=== PATIENT | female | born 1985 | race Caucasian/White ===

== ENCOUNTER → 2019-08-29 16:35 | Outpatient (BNVA) | payer SELFPAY | PROVIDERS: Family Provider Family Medicine; Visit Provider Nurse Practitioner Family | DX: J11.1 Influenza due to unidentified influenza virus with other respiratory manifestations (principal) | CPT/HCPCS: 87804 ==

== ENCOUNTER 2019-08-31 13:47 | Emergency (ER) | payer SELFPAY ==
[2019-08-31 13:56] VITALS: BP 160/94; PULSE 122; RESP 18; TEMP 37.8; O2SAT 95; BMI 38.7
--- NOTE | 2019-08-31 14:11 | ED_ITS ---
HPI - Fever General: Chief Complaint: Fever Stated Complaint: FLU-A POSS, CANT GET RID OF FEVER Time Seen by Provider: 08/31/19 14:11 Source: patient Mode of arrival: ambulatory Limitations: no limitations History of Present Illness: HPI Narrative: Patient is a 33-year-old female presents to ED today with complaints of body aches, fever, not wanting to eat since Thursday; patient was seen at urgent care on Thursday and diagnosed with influenza A; she has been alternating Tylenol and Motrin but does not feel like she can adequately control her fevers; she is also concerned about the diffuse body aches and possible dehydration; she complains of a nonproductive cough; reports she has 2 family members that she has had close proximity with that were influenza positive and also states several residents at the [employer] she works that have been positive for influenza MD elicited complaint: fever, malaise and weakness Onset (ago): day(s) Context: sick contacts Exacerbating factors: nothing Relieving factors: nothing Associated symptoms: Reports chills; Deny abdominal pain, chest pain, diarrhea, dysuria, headache(s), nasal congestion, nausea, sinus pain or vomiting Treatments prior to arrival fever: acetaminophen and ibuprofen Review of Systems Const: Reports: fever, chills, body aches, change in appetite, fatigue and malaise Eyes: Denies: change in vision, blurry vision, photophobia or eye discharge ENMT: Reports: throat pain; Denies: enlarged tonsils, painful swallowing, swelling of lips/tongue, oral sores/lesions, nasal discharge, nasal congestion, post nasal drip or facial/sinus pain Card: Denies: chest pain, palpitations, irregular heart rhythm, edema, lightheadedness, syncope, pre-syncope or shortness of breath when lying down Resp: Reports: non-productive cough and chest congestion; Denies: shortness of breath, productive cough, wheezing, stridor, pain on inspiration, change in phlegm color or coughing up blood GI: Denies: abdominal pain, nausea, vomiting or diarrhea : Denies: difficulty urinating, painful urination, urinary frequency, urinary urgency or urinary hesitancy Skin/Breast: Denies: rash Neuro: Denies: headache, numbness in extremities, weakness in extremities, changes in sensation or lack of coordination PFSH ED PFSH: Statuses (acute, chronic, etc) shown below reflect problem list status as previously entered and may not be historically accurate Social History (Updated 08/29/19 @ 16:38 by Marlin Graham LPN) Smoking and tobacco status: current every day smoker Alcohol intake: never Physical Exam Const: COMMON NORMALS: oriented x3, no limitations, alert and well nourished OTHER: looks like she doesn't feel well HENMT: COMMON NORMALS: normocephalic, head/scalp atraumatic and external nose normal HEAD & SCALP: normocephalic and atraumatic FACE & SINUS: normal facial exam and sinuses nontender NOSE: external nose normal THROAT: posterior oropharynx normal, tonsils normal and uvula midline Eye: COMMON NORMALS: PERRL and EOMs intact bilaterally PUPIL: Yes PERRL Neck/C-Spine: COMMON NORMALS: full ROM, no lymphadenopathy, supple and no meningeal signs Chest: COMMONS NORMALS: inspection of chest normal Resp: COMMON NORMALS: normal respiratory effort and clear to auscultation bilaterally AUSCULTATION: clear to auscultation bilaterally Cardio: COMMON NORMALS: regular rhythm RATE: tachycardic RHYTHM: regular rhythm GI: COMMON NORMALS: normal to inspection, nondistended, normoactive bowel sounds, soft to palpation, non-tender, no hepatosplenomegaly and no masses PALPATION: Yes soft and Yes no hepatosplenomegaly : COMMON NORMALS: Yes no CVA tenderness BLADDER/KIDNEY EXAM: Yes no CVA tenderness Back/Pelvis: COMMON NORMALS: no CVA tenderness and thoracic and lumbar spine normal to inspection Extremity: COMMON NORMALS: normal to inspection Neuro: COMMON NORMALS: oriented x3 SENSORIUM/ORIENTATION: Yes alert MENINGEAL SIGNS: Yes no meningeal signs Skin: COMMON NORMALS: no rashes or lesions noted GENERAL SKIN EXAM: no rashes or lesions noted Course Vital Signs: Vital signs: Vital Signs Temperature 98.4 F 08/31/19 15:40 Pulse Rate 93 08/31/19 15:40 Respiratory Rate 16 08/31/19 15:40 Blood Pressure 138/88 08/31/19 15:40 Pulse Oximetry 96 08/31/19 15:40 MDM - Fever MDM Narrative: Medical decision making narrative: Patient feels much better after a liter of fluids and fever subsiding; labs look okay but she does have a possible right lower lobe infiltrate; this is most likely viral however we cannot exclude the possibility of a secondary bacterial infection therefore patient will be covered with doxycycline; recommend follow-up with primary care provider in 3 to 5 days for continued symptoms; return to ED precautions given Lab Data: Labs: Lab Results 08/31/19 08/31/19 08/31/19 Range/Units 14:25 14:25 14:25 WBC 3.4 L (4.0-10.0) 10^3/ uL RBC 4.73 (4.1-5.3) 10^6/u L Hgb 13.5 (11.5-15.3) g/dL Hct 40.6 (37.0-47.0) % MCV 85.8 (81-99) fL MCH 28.5 (28.0-34.0) pg MCHC 33.3 (30.0-36.0) g/dL RDW 12.4 (12.1-15.1) % Plt Count 178 (130-400) 10^3/c mm MPV 10.7 H (7.4-10.4) fL Neut % (Auto) 72.8 % Lymph % (Auto) 21.6 % Hall % (Auto) 5.0 % Eos % (Auto) 0.0 % Baso % (Auto) 0.3 % Neut # (Auto) 2.5 (1.8-7.7) 10^3/u L Lymph # (Auto) 0.7 L (0.8-4.8) 10^3/u L Hall # (Auto) 0.2 (0.2-0.9) 10^3/u L Eos # (Auto) 0.0 (0.0-0.8) 10^3/u L Baso # (Auto) 0.0 (0.0-0.1) 10^3/u L Nucleated RBC % (a uto) 0 % Nucleated RBCs # 0.0 /100WBC Sodium 136 (136-145) mmol/L Potassium 3.2 L (3.5-5.1) mmol/L Chloride 99 (98-107) mmol/L Carbon Dioxide 23 (22-29) mmol/L Anion Gap 17.2 (5-19) BUN 7 (6-20) mg/dL Creatinine 0.8 (0.5-0.9) mg/dL GFR Calculation 82.1 L (90-130) mL/min Glucose 184 H (74-109) mg/dL Calcium 9.4 (8.5-10.5) mg/dL Total Bilirubin 0.4 (0.15-1.2) mg/dL AST 40 H (0-32) U/L ALT 16 (0-33) U/L Alkaline Phosphata se 114 H (35-105) IU/L Total Protein 7.5 (6.6-8.7) g/dL Albumin 4.3 (3.5-5.2) g/dL Globulin 3.2 (1.3-4.6) g/dL HCG, Qual Negative (Negative) Imaging Data^: CXR: Radiologist's impression: [address] [address] XRay Report Signed Patient: Sydnie Walsh Unit #: [id number] : [id number] Age/Sex: 33 / F ADM Date: 08/31/19 Loc: ER Room/Bed: Attending Dr: Ordering Provider/Ordering MD: Malyl Rojas Date of Service: 08/31/19 Procedure(s): XR chest 1V portable [id number] Accession Number(s): [id number] Report Number: [id number] PROCEDURE INFORMATION: Exam: XR Chest, 1 View Exam date and time: 08/31/2019 2:51 PM Age: 33 years old Clinical indication: Chest pain; Additional info: Cough/congestion TECHNIQUE: Imaging protocol: XR of the chest Views: 1 view. COMPARISON: CR Chest 1 [place] [id number] 12/21/2017 2:01 PM FINDINGS: Lungs: Minimal right lower lung opacity. Minimal linear left lower lung opacity. Pleural space: Unremarkable. No pleural effusion. No pneumothorax. Heart/Mediastinum: Unremarkable. No cardiomegaly. Bones/joints: No acute findings. XR/XR chest 1V portable [id number] IMPRESSION: Minimal bilateral lower lung atelectasis or pneumonia, right more than left. Dictated By: Quinton Fields MD Signed By: Quinton Fields MD Signed Date/Time: 08/31/19 1524 DD/ 1523 Discharge Plan Discharge Patient Disposition: Home, Self-Care Clinical Impression: Influenza Pneumonia Qualifiers: Pneumonia type: due to unspecified organism Laterality: right Lung location: lower lobe of lung Qualified Code(s): J18.9 - Pneumonia, unspecified organism Condition: Stable Prescriptions: New doxycycline monohydrate 100 mg capsule 100 mg PO BID 7 Days Qty: 14 RF: 0 Discharge Orders: Discharge Order (Routine); Ordered 08/31/19 Ordered By: Mally Rojas Referrals: Kelsi Burch MD [Family Provider] - Discharge Diet: Usual diet Discharge Activity: Increase activity as tolerated Discharge Date/Time: 08/31/19 15:41 Coding Level of Care Code ED Catalog Specialist for Cristiano Alvarado
--- NOTE | 2019-08-31 14:16 | XRR_ITS ---
PROCEDURE INFORMATION: Exam: XR Chest, 1 View Exam date and time: 08/31/2019 2:51 PM Age: 33 years old Clinical indication: Chest pain; Additional info: Cough/congestion TECHNIQUE: Imaging protocol: XR of the chest Views: 1 view. COMPARISON: CR Chest 1 [place] [id number] 12/21/2017 2:01 PM FINDINGS: Lungs: Minimal right lower lung opacity. Minimal linear left lower lung opacity. Pleural space: Unremarkable. No pleural effusion. No pneumothorax. Heart/Mediastinum: Unremarkable. No cardiomegaly. Bones/joints: No acute findings. XR/XR chest 1V portable [id number] IMPRESSION: Minimal bilateral lower lung atelectasis or pneumonia, right more than left.
[2019-08-31 14:34] VITALS: BP 139/93; PULSE 103; RESP 18; TEMP 37.4; O2SAT 96
[2019-08-31 14:37] LABS: Basophils % 0.3 %; Hematocrit 40.6 % (37.0-47.0); Hemoglobin 13.5 g/dL (11.5-15.3); Lymphocytes # 0.7 10^3/uL (0.8-4.8); Lymphocytes % 21.6 %; Mean Corpuscular HGB Conc 33.3 g/dL (30.0-36.0); Mean Corpuscular Hemoglobin 28.5 pg (28.0-34.0); Mean Corpuscular Volume 85.8 fL (81-99); Mean Platelet Volume 10.7 fL (7.4-10.4); Monocytes # 0.2 10^3/uL (0.2-0.9); Neutrophils # 2.5 10^3/uL (1.8-7.7); Neutrophils % 72.8 %; Nucleated Red Blood Cells % 0 %; Platelet Count 178 10^3/cmm (130-400); Red Blood Count 4.73 10^6/uL (4.1-5.3); Red Cell Distribution Width 12.4 % (12.1-15.1); White Blood Count 3.4 10^3/uL (4.0-10.0)
[2019-08-31] MEDS: acetaminophen 500 mg Tablet 1000 MG PO (14:46)
[2019-08-31] MEDS: sodium chloride 0.9% 1,000 ML 999 ML IV (14:49)
[2019-08-31 15:02] LABS: Alanine Aminotransferase 16 U/L (0-33); Albumin Level 4.3 g/dL (3.5-5.2); Alkaline Phosphatase 114 IU/L (35-105); Anion Gap 17.2 (5-19); Aspartate Amino Transferase 40 U/L (0-32); Blood Urea Nitrogen 7 mg/dL (6-20); Calcium 9.4 mg/dL (8.5-10.5); Carbon Dioxide 23 mmol/L (22-29); Chloride 99 mmol/L (98-107); Globulin 3.2 g/dL (1.3-4.6); Glomerular Filtration Rate 82.1 mL/min (90-130); Glucose 184 mg/dL (74-109); Potassium 3.2 mmol/L (3.5-5.1); Sodium 136 mmol/L (136-145); Total Bilirubin 0.4 mg/dL (0.15-1.2); Total Protein 7.5 g/dL (6.6-8.7)
[2019-08-31 15:40] VITALS: BP 138/88; PULSE 93; RESP 16; TEMP 36.9; O2SAT 96
[2019-08-31 15:42] LABS: HCG, Serum Qual Negative (Negative)
== END 2019-08-31 15:41 | disposition home or self-care (01) ==
PROVIDERS: Emergency Provider Physician Assistant; Family Provider Family Medicine
DX: J11.00 Influenza due to unidentified influenza virus with unspecified type of pneumonia (principal); F17.210 Nicotine dependence, cigarettes, uncomplicated
CPT/HCPCS: 71045; 80053; 84703; 85025; 96360; 99282; 99283; J7030

== ENCOUNTER → 2021-11-07 15:52 | Outpatient (BNVA) | payer OTHER, SELFPAY | PROVIDERS: Family Provider Family Medicine; Visit Provider Family Medicine | DX: R05.9 Cough, unspecified (principal); R06.02 Shortness of breath; R09.89 Other specified symptoms and signs involving the circulatory and respiratory systems | CPT/HCPCS: 71046 ==

== ENCOUNTER → 2022-03-24 11:01 | Outpatient (BNVA) | payer OTHER, SELFPAY | PROVIDERS: Family Provider Family Medicine; Visit Provider Family Medicine | DX: L03.317 Cellulitis of buttock (principal); B37.2 Candidiasis of skin and nail; N80.9 Endometriosis, unspecified; Z76.89 Persons encountering health services in other specified circumstances; F41.1 Generalized anxiety disorder; F41.0 Panic disorder [episodic paroxysmal anxiety] | CPT/HCPCS: 85025 ==

== ENCOUNTER → 2022-03-26 00:08 | Outpatient (BNVA) | payer OTHER, SELFPAY | PROVIDERS: Family Provider Family Medicine; Visit Provider Family Medicine | DX: L03.317 Cellulitis of buttock (principal); B37.2 Candidiasis of skin and nail; N80.9 Endometriosis, unspecified; Z76.89 Persons encountering health services in other specified circumstances; F41.1 Generalized anxiety disorder; F41.0 Panic disorder [episodic paroxysmal anxiety] | CPT/HCPCS: 80053; 80061; 83036; 84439; 84443; 84481 ==

== ENCOUNTER → 2022-04-11 16:07 | Outpatient (BNVA) | payer OTHER, SELFPAY | PROVIDERS: Family Provider Family Medicine; Visit Provider Emergency Medicine | DX: Z20.822 Contact with and (suspected) exposure to COVID-19 (principal) | CPT/HCPCS: 87426 ==

== ENCOUNTER → 2022-10-14 08:00 | Outpatient (BNVA) | payer OTHER, SELFPAY | PROVIDERS: Family Provider Family Medicine; PCP Family Medicine; Referring Provider Family Medicine; Visit Provider Orthopaedic Surgery | DX: M25.512 Pain in left shoulder (principal) | CPT/HCPCS: 73030 ==

== ENCOUNTER 2023-06-10 11:30 | Outpatient (CLI) | payer OTHER, SELFPAY ==
[2023-06-10 12:09] LABS: Basophils # 0.1 10^3/uL (0.0-0.1); Basophils % 0.5 %; Eosinophils # 0.1 10^3/uL (0.0-0.8); Eosinophils % 1.4 %; Hematocrit 39.4 % (36-47); Lymphocytes # 2.1 10^3/uL (0.8-4.8); Lymphocytes % 21.2 %; Mean Corpuscular Volume 84.9 fl (85-98); Mean Platelet Volume 9.9 fL (7.4-10.4); Monocytes # 0.6 10^3/uL (0.2-0.9); Monocytes % 6.4 %; Neutrophils # 6.93 10^3/uL (1.8-7.7); Neutrophils % 69.9 %; Nucleated Red Blood Cells % 0 %; Platelet Count 312 10^3/cmm (157-399); Red Blood Count 4.64 10^6/uL (3.85-5.65); Red Cell Distribution Width 13.9 % (12.1-15.1); White Blood Count 9.93 10^3/uL (3.29-11.43)
[2023-06-10 12:26] LABS: INR 0.87 (0.8-1.2)
[2023-06-10 12:43] LABS: Alanine Aminotransferase 28 U/L (0-33); Albumin Level 4.6 g/dL (3.5-5.2); Alkaline Phosphatase 115 U/L (35-105); Anion Gap 12.6 (5-19); Aspartate Amino Transferase 34 U/L (0-32); Blood Urea Nitrogen 12 mg/dL (6-20); Calcium 10.1 mg/dL (8.5-10.5); Cancer Antigen 19 9 6.44 U/mL (0-35); Carbon Dioxide 27 mmol/L (22-29); Chloride 102 mmol/L (98-107); Globulin 2.7 g/dL (1.3-4.6); Glomerular Filtration Rate 93.6 mL/min (90-130); Glucose 93 mg/dL (65-115); Osmolality Calculated 285 mOsm/kg (285-295); Potassium 3.6 mmol/L (3.5-5.1); Sodium 138 mmol/L (136-145); Total Bilirubin 0.6 mg/dL (0.15-1.2); Total Protein 7.3 g/dL (6.6-8.7)
[2023-06-10 12:56] LABS: Hepatitis A Antibody IgM Non-Reactive (Nonreactive); Hepatitis B Core AB, Total Non-Reactive (Nonreactive); Hepatitis B Surface AB 3.5 (11.5-1000); Hepatitis B Surface Antigen Non-Reactive (Nonreactive); Hepatitis C Virus Antibody Non-Reactive (Nonreactive)
[2023-06-10 13:33] LABS: Carcinoembryonic Antigen 1.2 ng/mL (0.0-4.7); Tumor Marker Alpha Fetoprotein 5.3 ng/mL (0-8.3)
== END 2023-06-10 11:31 | disposition home or self-care (01) ==
PROVIDERS: PCP Family Medicine; Visit Provider Family Medicine
DX: B19.20 Unspecified viral hepatitis C without hepatic coma (principal); R16.0 Hepatomegaly, not elsewhere classified; R59.0 Localized enlarged lymph nodes
CPT/HCPCS: 36415; 80053; 82105; 82247; 82248; 82378; 85025; 85610; 86301; 86705; 86706; 86709; 86803; 87340

== ENCOUNTER 2023-06-11 08:05 | Outpatient (CLI) | payer OTHER, SELFPAY ==
--- NOTE | 2023-06-11 08:00 | MR_ITS ---
WS: [id number] MRI/MRCP OF THE ABDOMEN WITHOUT GADOLINIUM ENHANCEMENT TECHNIQUE: Coronal T2 Fase BH, Axial T2 Fase BH, Axial T2 FS BH, Zxial 3D Veloz BH, Axial DWI BH, 2D MRCP Radial BH, 3D MRCP (Resp), and Axial 3D Dyn BH Post sequences. CLINICAL INFORMATION: Liver mass, abdominal LA COMPARISON: Outside CT abdomen pelvis 06/03/2023 FINDINGS: Again seen is the previously described 4.5 x 6.0 cm enhancing lesion undersurface of the RIGHT hepati c lobe with T2 hyperintense central scar. This demonstrates arterial phase enhancement on the post ga dolinium imaging with some washout on the portal venous phase and additional washout on the delayed i maging. Similar-appearing adjacent additional smaller lesion with similar imaging characteristics measuring 1 3 mm. This is unchanged since the recent CT. Diffuse fatty infiltration of the liver. Hepatomegaly. Enlarge ment the RIGHT hepatic lobe. Portal vein and splenic vein are patent. Normal pancreas. Normal spleen. Normal GE junction. Normal caliber abdominal aorta. Adrenal glands are normal. Normal renal parenchy mal enhancement. No hydronephrosis. Celiac and SMA are patent. Normal gallbladder. Normal common bile duct. Impression: 1. Stable RIGHT hepatic lesion as described on the recent CT with central scar. Most likely consider ation is hepatic adenoma versus less likely FNH in a patient this age. Recommend correlation with ora l contraceptive usage. Recommend 6-month follow-up with MRI of the liver or CT abdomen pelvis to conf irm stability if not resected. Also, recommend correlation with liver function tests. 2. Hepatic adenomas are at risk for hemorrhage and considering size recommend surgical consultation for resection or embolization. In addition, adenomas have demonstrated increased risk of rupture with . 3. Additional tiny satellite lesion measuring 13 mm with similar imaging characteristics. 4. Diffuse fatty infiltration the liver with hepatomegaly. 5. No other suspicious findings.
[2023-06-11] MEDS: gadobenate dimeglumine 20 mL vial IV (09:38)
== END 2023-06-11 08:06 | disposition home or self-care (01) ==
LOC: RAD 08:05
PROVIDERS: PCP Family Medicine; Visit Provider Family Medicine
DX: R16.0 Hepatomegaly, not elsewhere classified (principal); R59.0 Localized enlarged lymph nodes; K76.0 Fatty (change of) liver, not elsewhere classified; D13.4 Benign neoplasm of liver
CPT/HCPCS: 74183; A9577

== ENCOUNTER 2023-10-02 00:13 | Emergency (ER) | payer OTHER, SELFPAY ==
[2023-10-02 00:20] VITALS: BP 160/99; PULSE 92; RESP 20; TEMP 36.6; O2SAT 96
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
[2023-10-02 01:19] VITALS: BP 157/100; PULSE 94; RESP 18; O2SAT 91
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
[2023-10-02 01:52] VITALS: BP 150/87; PULSE 96; RESP 18; O2SAT 90
[2023-10-02 03:17] VITALS: BP 144/110; PULSE 88; RESP 18; O2SAT 90
== END 2023-10-02 03:18 | disposition home or self-care (01) ==
PROVIDERS: Emergency Provider Emergency Medicine; PCP Family Medicine
DX: M25.512 Pain in left shoulder (principal); Y04.2XXA Assault by strike against or bumped into by another person, initial encounter; Y92.239 Unspecified place in hospital as the place of occurrence of the external cause; Y99.0 Civilian activity done for income or pay
CPT/HCPCS: 73030; 99283

== ENCOUNTER 2023-12-07 07:56 | Outpatient (CLI) | payer OTHER, SELFPAY ==
--- NOTE | 2023-12-07 08:00 | MR_ITS ---
WS: [id number] MRI LEFT SHOULDER NONCONTRAST TECHNIQUE: Sagittal T2, coronal T1, T2 and proton density imaging. Axial gradient PDE imaging. CLINICAL INFORMATION: SHOULDER PAIN COMPARISON: None. FINDINGS: Mild degenerative arthritis of the AC joint. Slight subacromial spurring. Slight narrowing of the sub acromial space. Small amount of subacromial and subdeltoid fluid. Small amount of tendinopathy distal supraspinatus. Normal infraspinatus. Normal teres minor. Subscapularis appears intact. Slight medial subluxation of the biceps tendon in the bicipital groove. Intra-articular biceps tendon appears intact. Suggestion of chronic Hill-Sachs deformity. No acute edema. Recommend correlation with history of di slocation/instability. Glenoid labrum appears grossly normal. MR/MR shoulder LT wo con* [id number] IMPRESSION: 1. Mild degenerative arthritis AC joint. 2. Mild tendinopathy distal supraspinatus. 3. Rotator cuff is otherwise intact. 4. Suggestion of chronic Hill-Sachs deformity. No acute edema. Recommend corre lation with instability. 5. Glenoid labrum appears grossly normal. 6. Biceps tendon intact within the bicipital groove. Slight medial subluxation of the proximal biceps tendon in the bicipital groove. 7. No other acute findings.
== END 2023-12-07 07:57 | disposition home or self-care (01) ==
LOC: RAD 07:56
PROVIDERS: PCP Family Medicine; Visit Provider Physician Assistant
DX: M25.512 Pain in left shoulder (principal); M19.012 Primary osteoarthritis, left shoulder
CPT/HCPCS: 73221

== ENCOUNTER 2023-12-18 07:35 | Outpatient (CLI) | payer OTHER, SELFPAY ==
--- NOTE | 2023-12-18 08:00 | MR_ITS ---
WS: [id number] MRI ABDOMEN WITHOUT CONTRAST. COMPARISON: 06/11/2023, CT 06/03/2023 Multiplanar, multisequence imaging is performed without contrast. Unable to achieve IV access for con trast exam. History: Follow-up liver masses. Normal size liver. Again noted is mild bulging of the contour involving the inferior RIGHT lobe of th e liver. Reidentified is the slightly hyperintense mass measuring 5.2 x 5.0 cm. Slight bulging of the contour of the liver. This mass did contain a central scar on the prior MRI. Unfortunately unable to achieve IV access therefore the contrast study is not performed today. The smaller hyperintense focu s in the RIGHT lobe of the liver reidentified measuring 10 mm. The remaining liver is negative. There is no ascites. No enlargement of either liver mass since the prior study. Favor these are probably b enign. With a central scar as seen before, FNH and adenoma are most likely. The spleen is normal size. Normal pancreas. Both kidneys are normal. No adrenal mass. Visualized stom ach and GI tract are normal. MR/MR abdomen wo con [id number] IMPRESSION: 1. Reidentified are the 2 RIGHT lobe hepatic masses which are unchanged in siz e. 2. Technologist were unable to achieve IV access therefore the postcontrast im aging portion was not obtained. This would be very important to evaluate the ov erall vascularity. Size márquez there is no change in there is no adjacent edema a nd no bile duct dilatation. Favor benign hepatic lesions, most likely FNH or ad enomas.
== END 2023-12-18 07:36 | disposition home or self-care (01) ==
LOC: RAD 07:35
PROVIDERS: PCP Family Medicine; Visit Provider Family Medicine
DX: M25.512 Pain in left shoulder (principal); R16.0 Hepatomegaly, not elsewhere classified
CPT/HCPCS: 74181

== ENCOUNTER 2025-02-23 07:35 | Outpatient (CLI) | payer OTHER, SELFPAY ==
--- NOTE | 2025-02-23 07:39 | MR_ITS ---
WS: [id number] MRI LEFT SHOULDER NONCONTRAST TECHNIQUE: Sagittal T2, coronal T1, T2 and proton density imaging. Axial gradient PDE imaging. CLINICAL INFORMATION: PAIN IN LEFT SHOULDER COMPARISON: MRI 12/07/2023 FINDINGS: Moderate degenerative arthritis at the AC joint. Mild downsloping acromion with subacromial spurring. Slight impingement on the supraspinatus. Small amount of subacromial subdeltoid fluid. Tendinopathy in the distal supraspinatus and infraspinatus. Tiny undersurface insertional tears of the distal supraspinatus and infraspinatus. No high-grade tear or tendon retraction. Suspected chronic Hill-Sachs deformity is unchanged in appearance. Recommend correlation with instability. Normal teres minor. Subscapularis tendon is intact. Normal biceps tendon in the bicipital groove. Slight medial subluxation along the proximal bicipital groove is unchanged. Mild degenerative narrowing of the glenohumeral articulation. Normal bone marrow signal in the humerus and glenoid. Intra-articular biceps tendon appears intact. MR/MR shoulder LT wo con* [id number] IMPRESSION: 1. Mild to joint arthritis at the AC joint with a small amount of subacromial fluid and edema. Subacromial spurring. 2. Slight impingement on the distal supraspinatus with tendinopathy of the sup raspinatus and infraspinatus. Tiny insertional undersurface tears. 3. Rotator cuff is otherwise normal in appearance. 4. Slight medial subluxation of the proximal biceps tendon in the bicipital gr oove unchanged from previous. 5. Stable appearing suspected Hill-Sachs deformity at the level of the coracoi d. No acute edema. 6. No other acute findings.
== END 2025-02-23 07:36 | disposition home or self-care (01) ==
LOC: RAD 07:35
PROVIDERS: PCP Family Medicine; Visit Provider Orthopaedic Surgery
DX: M19.012 Primary osteoarthritis, left shoulder (principal); M67.814 Other specified disorders of tendon, left shoulder; M75.42 Impingement syndrome of left shoulder
CPT/HCPCS: 73221